=== PATIENT | female | born 1980 | race Caucasian/White ===

== ENCOUNTER 2017-10-02 15:38 | Inpatient (IN) | payer MEDICAID, SELFPAY ==
[2017-10-02 16:49] LABS: Hematocrit 39.7 % (36.0-47.0); Red Blood Cell (RBC) Count 4.52 mill/uL (4.20-5.40)
[2017-10-02 16:55] LABS: #Basophils 0.1 thou/uL (0.0-0.2); #Eosinphils 0.1 thou/uL (0.0-0.7); #Lymphocytes 2.3 thou/uL (1.20-3.40); #Monocytes 0.8 thou/uL (0.11-0.59); #Neutrophils 9.7 thou/uL (1.40-6.50); %Basophils 0.4 % (0.0-1.0); %Eosinophils 1.1 % (0.0-10.0); %Lymphocytes 17.5 % (21.0-51.0); %Monocytes 6.4 % (0.0-10.0); Mean Platelet Volume 7.8 fL (7.4-10.4)
[2017-10-02 17:12] LABS: ALT (SGPT) 15 U/L (8-55); AST (SGOT) 11 U/L (5-34); Alkaline Phosphatase 67 U/L (40-150); Anion Gap 9 mmol/L (10-20); BUN (Urea Nitrogen) 8 mg/dL (7.0-18.7); Bilirubin, Total 0.4 mg/dL (0.2-1.2); Calc. Creatinine Clearance 0 mL/min (70-130); Calcium 9.3 mg/dL (7.8-10.44); Carbon Dioxide 25 mmol/L (22-29); Chloride 108 mmol/L (98-107); Estimated GFR-MDRD 84; Globulin 3.3 g/dL (2.4-3.5); Protein, Total 7.4 g/dL (6.0-8.3)
[2017-10-02] MEDS ORDERED: Metoclopramide HCl 10 MG/2 ML VIAL ONE (17:24)
[2017-10-02] MEDS ORDERED: diphenhydrAMINE 50 MG/ML VIAL ONE (17:24)
[2017-10-02] MEDS ORDERED: Acetaminophen 500 MG TAB ONE (17:24)
[2017-10-02 17:58] LABS: Prothrombin Time 14.1 SEC (12.0-14.7)
--- NOTE | 2017-10-02 18:06 | RAD ---
SHUNTOGRAM SERIES: History: Headache. Comparison: None. FINDINGS: Shunt catheter is intact. No kinking. The paraspinal soft tissues are unremarkable. Lungs are without airspace consolidation. No dilated loops of small or large bowel. There are right upper quadrant surgical clips. IMPRESSION: Intact shunt catheter. POS: [facility]
[2017-10-02] MEDS ORDERED: Pantoprazole 40 MG VIAL ONE (18:09)
--- NOTE | 2017-10-02 18:26 | CT ---
CT BRAIN WITHOUT CONTRAST: History: Headache. FINDINGS: Right transfrontal shunt catheter is intact. No hydrocephalus. No acute hemorrhage or infarct. Mild g liosis along the right frontal tract. The paranasal sinuses and mastoid are clear. IMPRESSION: Intact right transfrontal shunt catheter. No hydrocephalus or acute intracranial abnormality. POS: [facility]
[2017-10-02] MEDS ORDERED: Ketorolac Tromethamine 30 MG/ML VIAL ONE (18:40)
[2017-10-02] MEDS ORDERED: Dexamethasone 4 mg/ml Vial ONE (18:40)
[2017-10-02] MEDS ORDERED: Pantoprazole 80 MG, Admixture Fee 1 EACH in Sodium Chloride 0.9% 100 ML IVPB SCH (18:45)
[2017-10-02] MEDS ORDERED: Magnesium 2 GM/NS 0.9% 50 ML 2 GM in Premix Bag 1 BAG IVPB SCH (19:00)
[2017-10-02] MEDS ORDERED: Magnesium 2 GM/NS 0.9% 100 ML 2 GM in Premix Bag 1 BAG IVPB SCH (19:00)
[2017-10-02 19:48] LABS: Bilirubin Negative (Negative); Blood, Urine Large (Negative); Glucose, Urine (Dipstick) Negative (Negative); Ketone, Urine Negative (Negative); Nitrite Negative (Negative); Protein, Urine (Dipstick) Trace mg/dL (Neg-Trace); Urobilinogen 0.2 mg/dL (0.2-1.0)
[2017-10-02 19:54] LABS: Bacteria/HPF 1+ HPF (None Seen); RBC/HPF 0-3 HPF (0-3)
[2017-10-02 20:05] LABS: Hyaline Casts/LPF 0-3 HYALINE CAST LPF (0-3 Hyaline)
[2017-10-02 20:06] LABS: Yeast-All Forms None Seen HPF (None Seen)
[2017-10-02] MEDS ORDERED: HYDROcodone/Acetaminophen 5/325 mg Tablet PO PRN (21:02)
[2017-10-02 21:13] VITALS: BMI 34.4
[2017-10-02] MEDS: Sodium Chloride 0.9% 1,000 ML IV SCH (21:45)
[2017-10-02] MEDS ORDERED: Amitriptyline HCl 25 MG TAB PO SCH (22:30)
[2017-10-02] MEDS: Ondansetron HCl/PF 4 MG/2 ML Vial IVP PRN (22:58)
[2017-10-03] MEDS ORDERED: Lorazepam 1 MG TAB PO SCH (00:45)
--- NOTE | 2017-10-03 02:17 | HP ---
DATE OF ADMISSION: 10/02/2017 PRIMARY CARE PROVIDER: Franck mcgovern. CHIEF COMPLAINT: Headache, abdominal pain, and blood in the stool. HISTORY OF PRESENT ILLNESS: This is a 37-year-old female, who presents to [facility] in transfer from [facility] where patient is a current resident after apparently maninder wall out of nursing home after a 15-month sentence. The patient states she has increasing headache, throbbing in the back portion of her head, radiating down her neck into her back. The patient states the symp toms have been ongoing with a history of questionable migraine headaches. Review of patient's medica l record shows multiple ER visits over the last several months. Regarding headache evaluation, recei ving IV Toradol, Fioricet, Benadryl, and Decadron. The patient also states a history of GUARD CAPTAIN shunt kayode cement after apparent spinal meningitis in 2012 or 2013. The patient states she had revision of the shunt, moving it to the right abdominal area after more midline location. The patient states she had sweating, subjective fever, some confusion and gait instability. The patient also states increasing abdominal pain with multiple bowel movements that appeared bloody in nature. The patient became con cerned when the entire toilet bowl was full of blood after a bowel movement. The patient denied any specific change to medication regimen, exposure history or travel. The patient denied any recent exp osure to antibiotic therapy. Review of medical records does reveal multiple ER visits, receiving IV and oral pain medications related to her headaches. The patient denies any known history of stomach ulcerations, colon polyps, ischemic bowel or irritable bowel syndrome. The patient also admitted wili e associated symptoms of the headache with tingling in her extremities and numbness of the hands. Th e patient states she did not take any specific relieving medication. The patient does state that she was recently placed on amitriptyline over the last 2-3 weeks by a clinic in the [facility]. T he patient denies any chronic aspirin, ibuprofen or anticoagulation therapy. In the emergency room, the patient underwent general evaluation including CT of the brain showing intact right transfrontal shunt catheter in place. No evidence of hydrocephalus or dislodgement noted. The patient received m ultiple medications including Protonix, Decadron, Toradol, Reglan, and Benadryl in the emergency room . The patient also received intravenous normal saline and Tylenol orally. The patient still continu es to complain of some headache at the time of interview. PAST MEDICAL HISTORY: 1. History of questionable spinal meningitis, status post GUARD CAPTAIN shunt placement. 2. Question of migraine headaches. 3. Question of drug seeking behavior. PAST SURGICAL HISTORY: 1. Status post GUARD CAPTAIN shunt with revision. 2. Status post cholecystectomy. 3. Status post bilateral tubal ligation. PSYCHIATRIC HISTORY: Anxiety. CURRENT MEDICATIONS: Unavailable. We will need to confirm with the patient and family. ALLERGIES: No known drug allergies. FAMILY HISTORY: No inheritable diseases per patient report. SOCIAL HISTORY: Recently incarcerated, released from nursing home after 15 months. Currently residing at [facility]. No current alcohol, tobacco or illicit drug use. REVIEW OF SYSTEMS: The following complete review of systems was negative, unless otherwise mentioned in the HPI or below: Constitutional: Weight loss or gain, ability to conduct usual activities. Skin: Rash, itching. Eyes: Double vision, pain. ENT/Mouth: Nose bleeding, neck stiffness, pain, tenderness. Cardiovascular: Palpitations, dyspnea on exertion, orthopnea. Respiratory: Shortness of breath, wheezing, cough, hemoptysis, fever or night sweats. Gastrointestinal: Poor appetite, abdominal pain, heartburn, nausea, vomiting, constipation, or diarr hea. Genitourinary: Urgency, frequency, dysuria, nocturia. Musculoskeletal: Pain, swelling. Neurologic/Psychiatric: Anxiety, depression. Allergy/Immunologic: Skin rash, bleeding tendency. PHYSICAL EXAMINATION: VITAL SIGNS: On admission, blood pressure 130/90, pulse 114, respiratory rate 20, temperature 98.1 d egrees Fahrenheit, O2 saturation 97% on room air. GENERAL APPEARANCE: This is a 37-year-old female, alert and oriented x3, pleasant, in mild distress. HEENT: Pupils are equal, round, and reactive to light and accommodation. Extraocular muscles are in tact. No scleral icterus, no conjunctival injection. Nares patent. OP is clear. Teeth in fair rep air. NECK: Supple. No cervical adenopathy, no thyromegaly, no carotid bruits, no JVD appreciated. Cervi dolly spine with full active and passive range of motion. No meningeal signs appreciated. CHEST: Lungs are clear to auscultation bilaterally. CARDIOVASCULAR: S1, S2, without noted murmur. ABDOMEN: Obese, soft, nontender, nondistended. Bowel sounds are positive in all four quadrants. Th ere is no hepatosplenomegaly, no abdominal bruits, no rebound or guarding appreciated. EXTREMITIES: Warm and dry with fair turgor. No clubbing, cyanosis or asymmetric edema appreciated. Pulses are palpable distally at the dorsalis pedis, posterior tibial, and popliteal arteries bilater ally. Capillary refill less than 2 seconds. NEUROLOGIC: Cranial nerves II-XII are grossly intact. No focal or lateralizing signs appreciated. PERTINENT LABORATORY AND X-RAY FINDINGS: Sodium 139, potassium 3.4, chloride 108, CO2 of 25, BUN 8, creatinine 0.78, glucose 97, calcium 9.3. LFTs within normal limits. Serum ammonia level 67, albumi n 4.1. Serum beta hCG negative. CBC showed a white blood cell count of 13.0, hemoglobin 13, hematoc rit 40, platelet count 307 with 75% neutrophils. PT 14.1, INR 1.1. Stool Hemoccult positive x1 on 12/02/2016. CT of the brain without contrast showed no acute intracranial process, well positioned GUARD CAPTAIN shunt in place. Shuntogram dated on 10/02/2017 showed intact shunt catheter right upper quadrant wi th surgical clips in place. ASSESSMENT AND PLAN: 1. Intractable headache. Etiology unclear. Questionable migraine component versus tension. GUARD CAPTAIN blanca nt intact after review the shuntogram. We will consult Neurosurgery for general evaluation and asses sment during the hospital course. We will continue symptomatic and supportive measures. Hydrocodone at 5/325 mg 1-2 tabs p.o. q.4-6 hours p.r.n. pain. Tylenol 1000 mg p.o. q.6 hours p.r.n. We will c ontinue intravenous normal saline at 100 mL per hour. 2. Question of gastrointestinal bleed. We will continue serial CBC assessment. Continue Protonix i nfusion at 8 mg per hour. Consult GI Service for further evaluation. Avoid anticoagulation and NSAI Ds. 3. Hypokalemia. Mild. Continue potassium chloride supplementation and repeat potassium level in th e a.m. 4. Leukocytosis. No focal evidence of infectious process. Repeat CBC in the a.m. Hold antibiotic therapy. 5. Abdominal pain, nonspecific. Continue supportive measures. Continue intravenous fluids as outli yelitza previously. Continue Protonix. 6. Prophylaxis. Sequential compression devices while in bed. Protonix infusion at 8 mg per hour. 7. Code status is FULL. Surrogate medical decision maker not identified.
[2017-10-03 04:42] LABS: Band 4 % (5-11); Hematocrit 36.3 % (36.0-47.0); Neutrophil 84 % (42-75); Red Blood Cell (RBC) Count 4.08 mill/uL (4.20-5.40); White Blood Cell (WBC) Count 10.9 thou/uL (4.8-10.8)
[2017-10-03] MEDS ORDERED: Lidocaine 2% Viscous Solution 20 ML, Aluminum & Magnesium Hydroxide 30 ML, Donnatal Eli... SSW SCH ×3 (04:45)
[2017-10-03 04:48] LABS: ALT (SGPT) 13 U/L (8-55); AST (SGOT) 9 U/L (5-34); Alkaline Phosphatase 57 U/L (40-150); Anion Gap 7 mmol/L (10-20); BUN (Urea Nitrogen) 8 mg/dL (7.0-18.7); Bilirubin, Total 0.3 mg/dL (0.2-1.2); Calc. Creatinine Clearance 153 mL/min (70-130); Calcium 8.3 mg/dL (7.8-10.44); Carbon Dioxide 23 mmol/L (22-29); Chloride 112 mmol/L (98-107); Estimated GFR-MDRD Greater than 90; Globulin 2.8 g/dL (2.4-3.5); Magnesium 2.5 mg/dL (1.6-2.6); Protein, Total 6.3 g/dL (6.0-8.3)
--- NOTE | 2017-10-03 05:45 | CON ---
DATE OF CONSULTATION: 10/02/2017 HISTORY OF PRESENT ILLNESS: Ms. Keys is a 37-year-old female who presented tonight with abdomin al pain and bloody stools. She also had a right-sided headache over which she had a previous shunt p l[place] [address] Stephens in [place], [place]. Neurosurgery was consulted because she has diff use right-sided headache on the side of her shunt. The skin around her shunt looks normal. Her whit e blood cell count was 13 and she is afebrile. CT of the brain and ventricles look small; however, i t looks like the shunt is working and the shunt series were negative. On exam, there are no neurolog ic deficits. The shunt placed in 2012, was placed because of hydrocephalus that she had a previous h istory of viral meningitis previous to the shunt in 2012. The shunt is a Codman Hakim shunt, antibio tic eluting and programmed to 120 mmHg. She has no prior imaging of the brain at hospitals around [facility]; however, all of her imaging and her neurosurgeon, Dr. Stephens is in [facility]. She is currently in [place] because she got out of [facility] and is in a senior living house. She also has besides the headache, the pain that radiates down her neck. ALLERGIES: No known drug allergies. CURRENT MEDICATIONS: 1. Imitrex 6 mg/0.5 mL 2. Ibuprofen 800 mg oral as needed for migraine. 3. Amitriptyline 50 mg oral 1 tablet 2 times a day. 4. Xanax 1 mg oral 1 tablet 2 times a day. PAST MEDICAL HISTORY: NIGHTCLUB MANAGER shunt and spinal meningitis. PAST SURGICAL HISTORY: Includes NIGHTCLUB MANAGER shunt, cholecystectomy, laparoscopic tubal ligation. PSYCHIATRIC HISTORY: Includes anxiety. No previous psychiatric admissions. SOCIAL HISTORY: The patient denies alcohol use, denies drug use, and has no smoking history. REVIEW OF SYSTEMS: The patient reports subjective fever. Currently, she is afebrile. The patient r eports abdominal pain, reports diarrhea with hematochezia. Reports back pain, right-sided headache, and neck pain. Reports confusion, dizziness. Although, the review of systems are negative, unless s tated in the above HPI. IMAGING/RADIOLOGY: CT brain without contrast shows the right transfrontal centric catheter intact. No hydrocephalus and no acute hemorrhage or infarct. X-ray shuntogram reveals the shunt catheter is intact. There is no kinking. The paraspinal soft tissues are unremarkable. Lungs are without airsp nathan consolidation. No dilated loops of small or large bowel. PHYSICAL EXAMINATION: HEENT: Normocephalic, atraumatic. Hearing intact. Moist mucous membranes. Eyes, pupils are equal and reactive to light. Extraocular muscles are intact. Sclerae are white, nonicteric. NECK: Trachea is midline. A shunt is under the skin on the right frontal region. CARDIOVASCULAR: The patient has regular rate and rhythm. Normal S1, S2 heart sounds. No distal cya nosis or clubbing noted. RESPIRATORY: Patient has bilateral symmetric chest rise. Appears to be in no shortness of breath. NEUROLOGIC: Cranial nerves II through XII are grossly intact. Speech is fluent. She answers my que stions appropriately. She is GCS of 15. She is alert and oriented x4. IMPRESSION: Ms. Keys is a 37-year-old female who presents with a past history of surgical place ment of a right-sided NIGHTCLUB MANAGER shunt in 2012 and has acute blood and hematochezia with diarrhea. PLAN: Medicine will admit Ms. Keys and workup for GI bleed. Neurologically, her neuro exam is negative and there are no acute findings. Therefore, there is no indication for neurosurgical proced ure at this time. Neurosurgery will sign off the case. If there are any further questions or if new neurologic deficits present, please feel free to contact us.
[2017-10-03] MEDS: Acetaminophen 500 MG TAB PO PRN ×2 (06:20→17:19)
--- NOTE | 2017-10-03 08:03 | CT ---
PRELIMINARY REPORT/[facility]/EMERGENCY AFTER HOURS PROCEDURE: EXAM: CT Abdomen and Pelvis Without Intravenous Contrast EXAM DATE/TIME: Exam ordered 10/03/2017 1:01 AM CLINICAL HISTORY: 37 years old, female; Pain and signs and symptoms; Bloating; Abdominal pain; Generalized; Prior surge ry; Patient HX: Eval for possible perforation; Pt C/O bloody stools. Abdominal pain (generalized), ab dominal distention. Surgical HX of cholecystectomy, shunt, shunt repair, tubal ligation. TECHNIQUE: Axial computed tomography images of the abdomen and pelvis without intravenous contrast. Coronal reformatted images were created and reviewed. COMPARISON: No relevant prior studies available. FINDINGS: Lower thorax: No acute findings. ABDOMEN: Liver: Unremarkable. Gallbladder and bile ducts: Prior cholecystectomy. No ductal dilation. Pancreas: Unremarkable. No ductal dilation. Spleen: Unremarkable. No splenomegaly. Adrenals: Unremarkable. No mass. Kidneys and ureters: Unremarkable. No obstructing stones. No hydronephrosis. Stomach and bowel: Unremarkable. No obstruction. No mucosal thickening. Appendix: Normal appendix. PELVIS: Bladder: Unremarkable. No stones. Reproductive: Unremarkable as visualized. ABDOMEN and PELVIS: Intraperitoneal space: Unremarkable. No free air. No significant fluid collection. PROMOTIONS ASSOCIATE shunt catheter present. Bones/joints: No acute fracture. No dislocation. Soft tissues: Unremarkable. Vasculature: Unremarkable. No abdominal aortic aneurysm. Lymph nodes: Unremarkable. No enlarged lymph nodes. IMPRESSION: No acute findings. Thank you for allowing us to participate in the care of your patient. Dictated and Authenticated by: Jay Perez MD 10/03/2017 1:14 AM Central Time ([place] & [place]) FINAL REPORT EMERGENCY AFTER HOURS CT ABDOMEN AND PELVIS WITHOUT IV CONTRAST: Date: 10/03/17 HISTORY: Generalized abdominal pain. Blood stools. Abdominal distention. Surgical history of cholecystectomy a nd ventriculoperitoneal shunt. COMPARISON: None available. IMPRESSION: 1. Bibasilar atelectasis. 2. Ventriculoperitoneal shunt catheter noted in place entering via the right upper quadrant with tip of the catheter overlying the upper pelvis. 3. Post cholecystectomy changes. 4. No acute findings are seen in the abdomen or pelvis. 5. No CT evidence of appendicitis. 6. No free fluid or free intraperitoneal gas is seen in the abdomen or pelvis. Findings are in agreement with the preliminary report by Jace. POS: [facility]
[2017-10-03] MEDS: Sodium Chloride 0.9% 1,000 ML IV SCH ×2 (08:28→17:17)
[2017-10-03] MEDS: Amitriptyline HCl 25 MG TAB PO SCH ×2 (08:28→20:30)
[2017-10-03] MEDS: Lorazepam 1 MG TAB PO SCH ×3 (08:28→20:30)
[2017-10-03] MEDS: Ondansetron ODT 4 MG TAB PO PRN (08:32)
--- NOTE | 2017-10-03 11:45 | PDOC.PN ---
- Subjective Encounter Start Date: 10/03/17 Encounter Start Time: 07:00 Pt seen for followup re: rectal bleeding. Did not have a BM today. Reports pain over lower back. No nausea or vomiting. - Objective Resuscitation Status: Resuscitation Status FULL:Full Resuscitation MAR Reviewed: Yes Vital Signs & Weight: Vital Signs (12 hours) Temp Pulse Resp BP Pulse Ox 10/03/17 11:16 98.1 F 99 16 102/54 L 95 10/03/17 07:54 98.2 F 91 16 10/03/17 07:52 97.5 F L 93 16 104/56 L 96 10/03/17 05:39 98.2 F 91 16 95/52 L 95 10/02/17 23:53 98.0 F 94 18 112/61 94 L 10/02/17 23:45 97.7 F 91 16 Weight Weight 188 lb 1.6 oz I&O: 10/02/17 10/03/17 10/04/17 06:59 06:59 06:59 Intake Total 1758 500 Output Total 1900 400 Balance -142 100 Result Diagrams: 10/03/17 04:12 10/03/17 04:12 EKG Reviewed by me: Yes (Tele: NSR) Phys Exam - Physical Examination Constitutional: NAD HEENT: PERRLA, moist MMs, sclera anicteric, oral pharynx no lesions Neck: no nodes, no JVD, supple, full ROM Respiratory: no wheezing, no rales, no rhonchi, clear to auscultation bilateral Cardiovascular: RRR, no rub Gastrointestinal: soft, non-tender, no distention, positive bowel sounds Musculoskeletal: pulses present Neurological: moves all 4 limbs Lymphatic: no nodes Psychiatric: normal affect, A&O x 3 Skin: no rash, normal turgor, cap refill <2 seconds Dx/Plan (1) LGI bleed Code(s): K92.2 - GASTROINTESTINAL HEMORRHAGE, UNSPECIFIED Status: Acute (2) Migraine Code(s): G43.909 - MIGRAINE, UNSP, NOT INTRACTABLE, WITHOUT STATUS MIGRAINOSUS Status: Chronic (3) Meningitis Code(s): G03.9 - MENINGITIS, UNSPECIFIED Status: Chronic (4) S/P MOLD CHECKER shunt Status: Chronic - Plan out of bed/ambulate, DVT proph w/SCDs * . Awaiting GI consult. Mild drop in Hb(? dilutional) Appreciate neurosurgery input. Review of Systems - Review of Systems Constitutional: negative: Fever, Chills, Sweats, Weakness, Malaise Respiratory: negative: Cough, Dry, Shortness of Breath, Hemoptysis, SOB with Excertion, Pleuritic Pain, Sputum, Wheezing Cardiovascular: negative: Chest Pain, Palpitations, Orthopnea, Paroxysmal Noc. Dyspnea, Edema, Light Headedness Gastrointestinal: Hematochezia. negative: Nausea, Vomiting, Abdominal Pain, Diarrhea, Constipation, Melena Musculoskeletal: Back Pain. negative: Neck Pain, Shoulder Pain, Arm Pain, Hand Pain, Leg Pain, Foot Pain - Medications/Allergies Allergies/Adverse Reactions: Allergies Allergy/AdvReac Type Severity Reaction Status Date / Time No Known Allergies Allergy Verified 10/02/17 21:08 Medications: Current Medications Acetaminophen (Tylenol) 1,000 mg PO Q6H PRN PRN Reason: Headache/Fever or Mild Pain Last Admin: 10/03/17 06:20 Dose: 1,000 mg Amitriptyline HCl (Elavil) 50 mg PO BID [facility] Last Admin: 10/03/17 08:28 Dose: 50 mg Sodium Chloride (Normal Saline 0.9%) 1,000 mls @ 100 mls/hr IV .Q10H [facility] Last Admin: 10/03/17 08:28 Dose: 1,000 mls Lorazepam (Ativan) 1 mg PO TID [facility] Last Admin: 10/03/17 08:28 Dose: 1 mg Ondansetron HCl (Zofran Odt) 8 mg PO Q6H PRN PRN Reason: Nausea/Vomiting Last Admin: 10/03/17 08:32 Dose: 8 mg Ondansetron HCl (Zofran) 8 mg IVP Q6H PRN PRN Reason: Nausea/Vomiting Last Admin: 10/02/17 22:58 Dose: 8 mg Sodium Chloride (Flush - Normal Saline) 10 ml IVF Q12HR [facility] Last Admin: 10/03/17 08:37 Dose: Not Given Sodium Chloride (Flush - Normal Saline) 10 ml IVF PRN PRN PRN Reason: Saline Flush Last Admin: 10/02/17 21:51 Dose: 10 ml Tramadol HCl (Ultram) 50 mg PO Q6H PRN PRN Reason: pain
[2017-10-03] MEDS: traMADol HCl 50 MG TAB PO PRN ×2 (12:44→21:02)
[2017-10-03] MEDS ORDERED: GoLYTELY 4,000 ml Bottle PO SCH (15:45)
--- NOTE | 2017-10-03 18:00 | CON ---
DATE OF CONSULTATION: 10/03/2017 HISTORY OF PRESENT ILLNESS: The patient is a 37-year-old female who presented with headach e. She had a little nausea, vomiting. She has had some mucus in her stool, no constipation, no diar king. She has not had bleeding in the past like this. She has had occasional streaking of blood on the toilet paper, which she attributes to hemorrhoids. This time she passed some clots. She also de scribes abdominal pain and distention. PAST MEDICAL HISTORY: Includes spinal meningitis with a GEOLOGICAL MANAGER shunt, migraine headaches, and history of drug abuse. PAST MEDICAL/SURGICAL HISTORY: Includes a cholecystectomy, GEOLOGICAL MANAGER shunt and tubal ligation. ALLERGIES: No known allergies. SOCIAL HISTORY: She does not smoke or drink. FAMILY HISTORY: Significant for father with polyps. REVIEW OF SYSTEMS: Ten systems were reviewed and were negative except for above. PHYSICAL EXAMINATION: GENERAL: Shows an overweight female, in no acute distress. HEENT: Unremarkable. NECK: Supple. CHEST: Clear. CARDIOVASCULAR: Regular rate and rhythm. ABDOMEN: Soft, nontender, without organomegaly or masses. Bowel sounds are present and normoactive. RECTAL: Deferred. EXTREMITIES: Normal. NEUROLOGIC: Nonfocal. LABORATORY: Abdominal and pelvic CT showed no acute findings except for GEOLOGICAL MANAGER shunt entering the right lower quadrant, previous cholecystectomy and bibasilar atelectasis. Admission urinalysis showed 7-10 WBCs, normal chemistry panel except for glucose of 144. CBC on admission showed hemoglobin 13 and t his dropped to 11.8. ASSESSMENT: 1. Lower gastrointestinal bleed. 2. History of spinal meningitis and GEOLOGICAL MANAGER shunt placement. 3. Abdominal pain -- appears to be drug seeking. RECOMMENDATIONS: Colonoscopy in a.m.
[2017-10-03] MEDS: Ondansetron HCl/PF 4 MG/2 ML Vial IVP PRN (21:02)
[2017-10-03] MEDS ORDERED: Morphine 2 mg/2ml in 0.9% NaCl PF SYRINGE SLOW IVP PRN (23:14)
[2017-10-04] MEDS: Promethazine HCl 25 MG in Sodium Chloride 0.9% 100 ML IVPB PRN ×3 (02:07→23:49)
[2017-10-04] MEDS: Morphine PF 1 MG/ML SYR IV PRN ×3 (03:05→14:06)
[2017-10-04] MEDS: Sodium Chloride 0.9% 1,000 ML IV SCH ×3 (03:16→21:40)
[2017-10-04] MEDS: Ondansetron ODT 4 MG TAB PO PRN (08:54)
[2017-10-04] MEDS: Amitriptyline HCl 25 MG TAB PO SCH ×2 (10:00→20:00)
[2017-10-04] MEDS: Lorazepam 1 MG TAB PO SCH ×3 (10:00→20:00)
--- NOTE | 2017-10-04 11:13 | PDOC.PN ---
- Subjective Encounter Start Date: 10/04/17 Encounter Start Time: 07:20 Pt seen for followup re: lower GI bleed. Reports having multiple BMs with blood. No nausea or vomiting. - Objective Resuscitation Status: Resuscitation Status FULL:Full Resuscitation MAR Reviewed: Yes Vital Signs & Weight: Vital Signs (12 hours) Temp Pulse Resp BP BP Pulse Ox 10/04/17 09:05 119/67 10/04/17 07:35 97.3 F L 89 16 94/51 L 95 10/04/17 05:44 97.6 F 76 16 99/61 95 Weight Admit Weight 188 lb 1.6 oz Weight 190 lb 6.4 oz I&O: 10/03/17 10/04/17 10/05/17 06:59 06:59 06:59 Intake Total 1758 7946 Output Total 1900 1700 Balance -142 6246 Result Diagrams: 10/03/17 04:12 10/03/17 04:12 EKG Reviewed by me: Yes (Tele: NSR) Phys Exam - Physical Examination Obese HEENT: moist MMs, oral pharynx no lesions Neck: supple Respiratory: clear to auscultation bilateral Cardiovascular: RRR Gastrointestinal: soft, non-tender, positive bowel sounds Neurological: moves all 4 limbs Psychiatric: normal affect Skin: no rash Dx/Plan (1) LGI bleed Code(s): K92.2 - GASTROINTESTINAL HEMORRHAGE, UNSPECIFIED Status: Acute (2) Migraine Code(s): G43.909 - MIGRAINE, UNSP, NOT INTRACTABLE, WITHOUT STATUS MIGRAINOSUS Status: Chronic (3) S/P HIDE MILL WORKER shunt Status: Chronic - Plan PT/OT, out of bed/ambulate, DVT proph w/SCDs * . Awaiting colonoscopy, will check CBC. Headache resolved. Review of Systems - Review of Systems Cardiovascular: negative: Chest Pain, Palpitations, Orthopnea, Paroxysmal Noc. Dyspnea, Edema, Light Headedness Gastrointestinal: Hematochezia. negative: Nausea, Vomiting, Abdominal Pain, Diarrhea, Constipation, Melena - Medications/Allergies Allergies/Adverse Reactions: Allergies Allergy/AdvReac Type Severity Reaction Status Date / Time No Known Allergies Allergy Verified 10/02/17 21:08 Medications: Current Medications Acetaminophen (Tylenol) 1,000 mg PO Q6H PRN PRN Reason: Headache/Fever or Mild Pain Last Admin: 10/03/17 17:19 Dose: 1,000 mg Amitriptyline HCl (Elavil) 50 mg PO BID [facility] Last Admin: 10/04/17 10:00 Dose: 50 mg Sodium Chloride (Normal Saline 0.9%) 1,000 mls @ 100 mls/hr IV .Q10H [facility] Last Admin: 10/04/17 03:16 Dose: 1,000 mls Promethazine HCl 25 mg/ Sodium (Chloride) 101 mls @ 202 mls/hr IVPB Q8H PRN PRN Reason: Nausea Last Admin: 10/04/17 02:07 Dose: 101 mls Lorazepam (Ativan) 1 mg PO TID [facility] Last Admin: 10/04/17 10:00 Dose: 1 mg Morphine Sulfate (Duramorph) 2 mg IV Q6H PRN PRN Reason: Pain Last Admin: 10/04/17 08:58 Dose: 2 mg Ondansetron HCl (Zofran Odt) 8 mg PO Q6H PRN PRN Reason: Nausea/Vomiting Last Admin: 10/04/17 08:54 Dose: 8 mg Ondansetron HCl (Zofran) 8 mg IVP Q6H PRN PRN Reason: Nausea/Vomiting Last Admin: 10/03/17 21:02 Dose: 8 mg Sodium Chloride (Flush - Normal Saline) 10 ml IVF Q12HR [facility] Last Admin: 10/04/17 09:58 Dose: Not Given Sodium Chloride (Flush - Normal Saline) 10 ml IVF PRN PRN PRN Reason: Saline Flush Last Admin: 10/02/17 21:51 Dose: 10 ml Tramadol HCl (Ultram) 50 mg PO Q6H PRN PRN Reason: pain Last Admin: 10/03/17 21:02 Dose: 50 mg
[2017-10-04] MEDS ORDERED: Propofol 500 MG/50 ML VIAL ONE (11:34)
[2017-10-04] MEDS ORDERED: Fentanyl 100 MCG/2 ML VIAL ONE (12:18)
--- NOTE | 2017-10-04 12:50 | PDOC.EVN ---
Event Note - Event Note Event Note: Discussed with case management re: ongoing GI bleed, diagnosis of colitis and hypotension earlier today. Will change status to in-patient.
--- NOTE | 2017-10-04 14:17 | OP ---
PREOPERATIVE DIAGNOSIS: Gastrointestinal bleeding. PROCEDURE IN DETAIL: After informed consent was obtained, the patient was placed in the left lateral decubitus position. Anesthesia was administered per the Anesthesia Department. A forward-viewing e ndoscope was inserted in the rectum after perianal inspection and rectal exam were normal and passed to the cecum with ease. The cecum, ileocecal valve and appendiceal orifice were normal. The appendi ceal orifice did show some slight edema and some erosions with some granularity. The terminal ileum was normal. Biopsies were taken from the appendiceal orifice. The ascending, transverse and descend ing were all normal. In the sigmoid, few scattered areas of erosion were noted. These were biopsied . In the rectal and the distal 5 cm in the rectum was circumferential granularity and erythema. Bio psies were taken from this area as well. Retroflexion in the rectum was otherwise normal. ASSESSMENT: Colitis involving periappendiceal orifice, scattered areas of the sigmoid and distal rec mike - status post biopsy; probably ulcerative colitis. RECOMMENDATIONS: 1. Await histopathology. 2. Begin Canasa suppositories. 3. Stable for discharge from GI standpoint.
[2017-10-04 14:24] LABS: #Basophils 0.1 thou/uL (0.0-0.2); #Eosinphils 0.1 thou/uL (0.0-0.7); #Lymphocytes 3.3 thou/uL (1.20-3.40); #Monocytes 0.4 thou/uL (0.11-0.59); #Neutrophils 4.6 thou/uL (1.40-6.50); %Basophils 0.9 % (0.0-1.0); %Eosinophils 1.2 % (0.0-10.0); %Lymphocytes 39.1 % (21.0-51.0); Hematocrit 36.9 % (36.0-47.0); Mean Platelet Volume 8.1 fL (7.4-10.4); Red Blood Cell (RBC) Count 4.08 mill/uL (4.20-5.40); White Blood Cell (WBC) Count 8.5 thou/uL (4.8-10.8)
[2017-10-04] MEDS ORDERED: Propofol 200 MG/20 ML VIAL ONE (15:30)
[2017-10-04] MEDS ORDERED: Lidocaine 1% PF 5 ML VIAL ONE (15:30)
[2017-10-04] MEDS ORDERED: PHENYLEPHRINE-NS 100 MCG/ML 10 ML SYRINGE ONE (15:30)
[2017-10-04] MEDS: Mesalamine 1000 MG Suppository PR SCH (20:01)
[2017-10-04] MEDS: Morphine 2 mg/2ml in 0.9% NaCl PF SYRINGE IV PRN (20:02)
[2017-10-04] MEDS: Ondansetron HCl/PF 4 MG/2 ML Vial IVP PRN (20:02)
[2017-10-05] MEDS: Morphine 2 mg/2ml in 0.9% NaCl PF SYRINGE IV PRN ×2 (01:54→10:06)
[2017-10-05 04:41] LABS: Hematocrit 34.7 % (36.0-47.0); Mean Platelet Volume 7.9 fL (7.4-10.4); White Blood Cell (WBC) Count 10.5 thou/uL (4.8-10.8)
[2017-10-05] MEDS: Acetaminophen 500 MG TAB PO PRN ×2 (05:17→21:04)
[2017-10-05] MEDS: Lorazepam 1 MG TAB PO SCH ×3 (08:23→21:01)
[2017-10-05] MEDS: Sodium Chloride 0.9% 1,000 ML IV SCH ×2 (08:23→21:07)
[2017-10-05] MEDS: Amitriptyline HCl 25 MG TAB PO SCH ×2 (08:23→21:01)
--- NOTE | 2017-10-05 12:24 | PRG ---
DATE OF SERVICE: 10/05/2017 SUBJECTIVE: The patient complains of abdominal pain. She has not had any bowel movements. She has had nausea, but no vomiting. She is tolerating a regular diet. OBJECTIVE: VITAL SIGNS: Temperature 97.6, pulse 99, respiratory rate 18, blood pressure 110/73. CHEST: Clear. CARDIOVASCULAR: Regular rate and rhythm. ABDOMEN: Soft, nontender, without organomegaly or masses. LABORATORY DATA: Shows hemoglobin of 11.5, hematocrit 34.7. ASSESSMENT: Rectosigmoid ulcerative colitis - is fairly minimal disease and it can be managed as an outpatient. RECOMMENDATIONS: 1. Continue Canasa, add Azulfidine. 2. Stable for discharge from GI standpoint. 3. Follow up as outpatient.
[2017-10-05] MEDS: sulfaSALAzine 500 MG TAB PO SCH ×3 (13:28→21:01)
--- NOTE | 2017-10-05 13:54 | PDOC.PN ---
- Subjective Encounter Start Date: 10/05/17 Encounter Start Time: 11:45 Subjective: c/o abd pain -: no nausea or vomiting - Objective Resuscitation Status: Resuscitation Status FULL:Full Resuscitation MAR Reviewed: Yes Vital Signs & Weight: Vital Signs (12 hours) Temp Pulse Resp BP Pulse Ox 10/05/17 11:21 97.6 F 99 18 110/73 97 10/05/17 08:12 98.1 F 97 17 99/68 97 10/05/17 08:00 98.1 F 97 17 97 Weight Admit Weight 188 lb 1.6 oz Weight 190 lb 6.4 oz I&O: 10/04/17 10/05/17 10/06/17 06:59 06:59 06:59 Intake Total 7946 0 480 Output Total 1700 Balance 6246 0 480 Result Diagrams: 10/05/17 04:14 10/03/17 04:12 Phys Exam - Physical Examination HEENT: PERRLA, moist MMs Neck: no JVD, supple Respiratory: no wheezing, no rales Cardiovascular: RRR, no significant murmur Gastrointestinal: soft, no distention, positive bowel sounds no rigidity or guarding Musculoskeletal: no edema, pulses present Neurological: non-focal, moves all 4 limbs Psychiatric: A&O x 3 Dx/Plan (1) Ulcerative colitis Code(s): K51.90 - ULCERATIVE COLITIS, UNSPECIFIED, WITHOUT COMPLICATIONS Status: Acute Qualifiers: Ulcerative colitis location: ulcerative rectosigmoiditis (2) LGI bleed Code(s): K92.2 - GASTROINTESTINAL HEMORRHAGE, UNSPECIFIED Status: Resolved (3) Migraine Code(s): G43.909 - MIGRAINE, UNSP, NOT INTRACTABLE, WITHOUT STATUS MIGRAINOSUS Status: Chronic Qualifiers: Migraine type: unspecified (4) h/o manager biostatistics shunt Status: Chronic - Plan is on mesalamine suppository and oral sulfasalazine -: pt wants to go in am, may dc anytime if she is willing to go -: is currently living in [facility] -: h/h stable at -: may dc iv fluids if tolerating po well * . Review of Systems - Medications/Allergies Allergies/Adverse Reactions: Allergies Allergy/AdvReac Type Severity Reaction Status Date / Time No Known Allergies Allergy Verified 10/02/17 21:08 Medications: Current Medications Acetaminophen (Tylenol) 1,000 mg PO Q6H PRN PRN Reason: Headache/Fever or Mild Pain Last Admin: 10/05/17 05:17 Dose: 1,000 mg Amitriptyline HCl (Elavil) 50 mg PO BID [facility] Last Admin: 10/05/17 08:23 Dose: 50 mg Sodium Chloride (Normal Saline 0.9%) 1,000 mls @ 100 mls/hr IV .Q10H [facility] Last Admin: 10/05/17 08:23 Dose: 1,000 mls Promethazine HCl 25 mg/ Sodium (Chloride) 101 mls @ 202 mls/hr IVPB Q8H PRN PRN Reason: Nausea Last Admin: 10/04/17 23:49 Dose: 101 mls Lorazepam (Ativan) 1 mg PO TID [facility] Last Admin: 10/05/17 08:23 Dose: 1 mg Mesalamine (Canasa) 1,000 mg VA HS [facility] Last Admin: 10/04/17 20:01 Dose: 1,000 mg Ondansetron HCl (Zofran Odt) 8 mg PO Q6H PRN PRN Reason: Nausea/Vomiting Last Admin: 10/04/17 08:54 Dose: 8 mg Ondansetron HCl (Zofran) 8 mg IVP Q6H PRN PRN Reason: Nausea/Vomiting Last Admin: 10/04/17 20:02 Dose: 8 mg Sodium Chloride (Flush - Normal Saline) 10 ml IVF Q12HR [facility] Last Admin: 10/05/17 08:24 Dose: Not Given Sodium Chloride (Flush - Normal Saline) 10 ml IVF PRN PRN PRN Reason: Saline Flush Last Admin: 10/02/17 21:51 Dose: 10 ml Sulfasalazine (Azulfidine) 1,000 mg PO QID [facility] Last Admin: 10/05/17 13:28 Dose: 1,000 mg Tramadol HCl (Ultram) 50 mg PO Q6H PRN PRN Reason: pain Last Admin: 10/03/17 21:02 Dose: 50 mg
[2017-10-05] MEDS: Promethazine HCl 25 MG in Sodium Chloride 0.9% 100 ML IVPB PRN (17:12)
[2017-10-05] MEDS: traMADol HCl 50 MG TAB PO PRN ×2 (17:13→23:02)
[2017-10-05] MEDS: Hyoscyamine Sulfate SL 0.125 mg Tablet SL PRN (20:58)
[2017-10-05] MEDS: Mesalamine 1000 MG Suppository PR SCH (21:04)
[2017-10-06] MEDS: Acetaminophen 500 MG TAB PO PRN (03:25)
[2017-10-06] MEDS: Hyoscyamine Sulfate SL 0.125 mg Tablet SL PRN (03:25)
[2017-10-06] MEDS: Sodium Chloride 0.9% 1,000 ML IV SCH (05:15)
[2017-10-06] MEDS: traMADol HCl 50 MG TAB PO PRN ×2 (05:22→11:44)
[2017-10-06 08:02] VITALS: BP 112/75; TEMP 97.7
[2017-10-06] MEDS: Amitriptyline HCl 25 MG TAB PO SCH (08:18)
[2017-10-06] MEDS: Lorazepam 1 MG TAB PO SCH (08:18)
[2017-10-06] MEDS: sulfaSALAzine 500 MG TAB PO SCH (08:18)
--- NOTE | 2017-10-06 12:31 | PDOC.PN ---
- Subjective Encounter Start Date: 10/06/17 Encounter Start Time: 07:50 Subjective: feels better, is tolerating oral diet - Objective Resuscitation Status: Resuscitation Status FULL:Full Resuscitation MAR Reviewed: Yes Vital Signs & Weight: Vital Signs (12 hours) Temp Pulse Resp BP Pulse Ox 10/06/17 08:00 97.7 F 72 16 112/75 96 Weight Admit Weight 188 lb 1.6 oz Weight 190 lb 6.4 oz I&O: 10/05/17 10/06/17 10/07/17 06:59 06:59 06:59 Intake Total 2049 5261 180 Balance 2049 5261 180 Result Diagrams: 10/05/17 04:14 10/03/17 04:12 Phys Exam - Physical Examination HEENT: PERRLA, moist MMs Neck: no JVD, supple Respiratory: no wheezing, no rales Cardiovascular: RRR, no significant murmur Gastrointestinal: soft, non-tender, positive bowel sounds Musculoskeletal: no edema, pulses present Neurological: non-focal, moves all 4 limbs Psychiatric: A&O x 3 Dx/Plan (1) Ulcerative colitis Code(s): K51.90 - ULCERATIVE COLITIS, UNSPECIFIED, WITHOUT COMPLICATIONS Status: Acute Qualifiers: Ulcerative colitis location: ulcerative rectosigmoiditis (2) LGI bleed Code(s): K92.2 - GASTROINTESTINAL HEMORRHAGE, UNSPECIFIED Status: Resolved (3) Migraine Code(s): G43.909 - MIGRAINE, UNSP, NOT INTRACTABLE, WITHOUT STATUS MIGRAINOSUS Status: Chronic Qualifiers: Migraine type: unspecified (4) h/o 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
--- NOTE | 2017-10-07 11:31 | DIS ---
DATE OF ADMISSION: 10/02/2017 DATE OF DISCHARGE: 10/06/2017 DISCHARGE DISPOSITION: To home. PRIMARY DISCHARGE DIAGNOSES: Suspected ulcerative colitis of the rectosigmoid area, lower gastrointe stinal bleed, resolved, migraine, history of HERITAGE CONSULTANT shunt. PROCEDURES DONE DURING HOSPITALIZATION: Abdominal and pelvic CAT scan done showed no acute findings. Her HERITAGE CONSULTANT shunt catheter is noted in place entering via the right upper quadrant with tip of the miguelito ter overlying the upper pelvis. No CT evidence of appendicitis or free fluid or gas seen. Shuntogra m done for her HERITAGE CONSULTANT shunt showed intact shunt catheter. CT brain showed intact right transfrontal shun t catheter. No hydrocephalus or acute intracranial abnormality. Colonoscopy done showed colitis inv olving periappendiceal orifice, scattered areas of sigmoid and distal rectum, status post biopsy, pro bably ulcerative colitis. DISCHARGE MEDICATIONS: Amitriptyline 50 mg p.o. twice daily, lorazepam 1 mg p.o. 3 times daily, shen alaina 1000 mg per rectal at bedtime, sulfasalazine 1000 mg p.o. 4 times daily, sumatriptan p.r.n. ALLERGIES: No known drug allergies. DISCHARGE LABORATORY DATA: H&H was 11 and 34, platelet count 255. INR 1.1. Liver enzymes were with in normal limits. Serum test was negative. INPATIENT CONSULTS: Dr. Chapa for Gastroenterology. BRIEF COURSE DURING HOSPITALIZATION: The patient initially got admitted on the with complaints of headache, abdominal pain, and blood in her stool. She was initially admitted to the stroke unit, later transferred to medical floor. She has had a CT brain done in view of her HERITAGE CONSULTANT shunt and a shunto gram was done as well. CT brain did not reveal any acute abnormalities. Her HERITAGE CONSULTANT shunt was patent. T he patient has had a GI consultation with Dr. Chapa. Colonoscopy done revealed scattered areas of col itis with likely suspicion for ulcerative colitis. She was placed on mesalamine and sulfasalazine. She has responded well to these measures. She is ambulating and tolerating solid diet. The patient needs to follow up with Dr. Chapa in 2-4 weeks. Need to discuss her histopathology findings as well w uri Chapa. She is otherwise hemodynamically stable and will be shortly discharged home. Please s ee a [id number] documentation for the day of discharge on [facility].
== END 2017-10-06 12:22 | disposition home or self-care (01) | DRG 378 ==
LOC: ERS 15:38 → 2SW 20:46 → OBSVTOIN 20:46 → T4-B 10-04 15:49
PROVIDERS: ADMIT Family Medicine; ATTEND Family Medicine
PROC: 0DBH8ZX Excision of Cecum, Via Natural or Artificial Opening Endoscopic, Diagnostic (ICD-10-PCS; principal; 2017-10-05)
PROC: 0DBN8ZX Excision of Sigmoid Colon, Via Natural or Artificial Opening Endoscopic, Diagnostic (ICD-10-PCS; 2017-10-05)
PROC: 0DBP8ZX Excision of Rectum, Via Natural or Artificial Opening Endoscopic, Diagnostic (ICD-10-PCS; 2017-10-05)
DX: K92.2 Gastrointestinal hemorrhage, unspecified (principal); J98.11 Atelectasis; K51.90 Ulcerative colitis, unspecified, without complications; E87.6 Hypokalemia; D72.829 Elevated white blood cell count, unspecified; F41.9 Anxiety disorder, unspecified; G43.909 Migraine, unspecified, not intractable, without status migrainosus; Z76.5 Malingerer [conscious simulation]
CPT/HCPCS: 36415; 70450; 74176; 75809; 80053; 81003; 81015; 82140; 82274; 83735; 83880; 84703; 85007; 85025; 85027; 85610; 86850; 86900; 86901; 88305; 96361; 96365; 96375; 96376; A4216; C9113; J1100; J1200; J1885; J2001; J2270; J2274; J2405; J2550; J2704; J2765; J3010; J3475; J7050; Q0162

== ENCOUNTER 2017-10-08 13:50 | Emergency (ER) | payer MEDICAID ==
[2017-10-08 14:43] LABS: Bilirubin Negative (Negative); Blood, Urine Negative (Negative); Glucose, Urine (Dipstick) Negative (Negative); Ketone, Urine 40 mg/dL (Negative); Nitrite Negative (Negative); Protein, Urine (Dipstick) Negative (Neg-Trace); Urobilinogen 0.2 mg/dL (0.2-1.0)
[2017-10-08 15:19] LABS: #Basophils 0.1 thou/uL (0.0-0.2); #Eosinphils 0.1 thou/uL (0.0-0.7); #Monocytes 0.6 thou/uL (0.11-0.59); #Neutrophils 6.4 thou/uL (1.40-6.50); %Basophils 0.7 % (0.0-1.0); %Eosinophils 0.7 % (0.0-10.0); %Lymphocytes 21.7 % (21.0-51.0); %Monocytes 6.2 % (0.0-10.0); Hematocrit 42.2 % (36.0-47.0); Mean Platelet Volume 7.8 fL (7.4-10.4); Red Blood Cell (RBC) Count 4.76 mill/uL (4.20-5.40)
[2017-10-08] MEDS ORDERED: Metoclopramide HCl 10 MG/2 ML VIAL ONE (15:35)
[2017-10-08 15:41] LABS: ALT (SGPT) 18 U/L (8-55); AST (SGOT) 14 U/L (5-34); Alkaline Phosphatase 64 U/L (40-150); Anion Gap 14 mmol/L (10-20); BUN (Urea Nitrogen) 10 mg/dL (7.0-18.7); Bilirubin, Total 0.6 mg/dL (0.2-1.2); Calc. Creatinine Clearance 0 mL/min (70-130); Calcium 9.8 mg/dL (7.8-10.44); Carbon Dioxide 26 mmol/L (22-29); Chloride 102 mmol/L (98-107); Estimated GFR-MDRD 77; Globulin 3.6 g/dL (2.4-3.5); Protein, Total 7.9 g/dL (6.0-8.3)
[2017-10-08 15:49] LABS: Amphetamine Not Detected (NotDetected); Methadone Not Detected (NotDetected); Methamphetamine Not Detected (NotDetected)
--- NOTE | 2017-10-08 16:48 | CT ---
CT BRAIN NONCONTRAST: DATE: 10/08/17 HISTORY: 37-year-old female with right sided headache. COMPARISON: CT of 10/02/17. FINDINGS: MOLDING SUPERVISOR shunt catheter enters through a right frontal terrance hole, traversing the right frontal lobe parench yma and with distal tip at midline, in the region of the foramen of Monro. The lateral ventricles are small and slit-like except for the temporal horns. Third ventricle is effaced. Fourth ventricle is s mall. No acute intra-axial or extra-axial hemorrhage. No mass effect, midline shift, or extra-axial f luid collection. Bilateral tympanomastoid cavities, and the frontal, ethmoid and sphenoid sinuses, ar e grossly clear. No acute calvarial fracture. No interval change overall. IMPRESSION: 1. No acute intracranial findings. 2. Collapsed ventricles, raising the possibility of over-shunting. Recommend clinical correlatio n. 3. No interval change since 10/02/17. AKASH Keith POS: [facility]
--- NOTE | 2017-10-08 16:50 | RAD ---
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 FINDINGS/IMPRESSION: A right sided ventriculoperitoneal shunt is seen which extends to the right side of the head into the right side of the neck and chest. The visualized portions of the right sided ventriculoperitoneal sh unt are intact. Prevertebral soft tissues are normal. The airway appears patent. Alignment of the cer vical vertebral bodies is normal. POS: [facility]
--- NOTE | 2017-10-08 16:52 | RAD ---
RADIOGRAPH CHEST 1 VIEW RADIOGRAPH ABDOMEN 2 VIEWS: 10/08/17 HISTORY: Generalized abdominal pain. FINDINGS: The visualized lung parikh are clear. The cardiomediastinal silhouette and hilar shadows are normal. The lateral costophrenic angles are sharp. The osseous structures appear normal. There is no evid ence of pneumothorax or pneumoperitoneum. The bowel gas pattern is normal, with no evidence of small bowel dilation or differential air/fluid l evels. There is no evidence of organomegaly. CAFE HELPER shunt catheter descends the soft tissues of the right lower neck and right paramedian chest, down to the right paramedian mid abdomen, where it loops and crosses the midline to the left, before desce nding to the right side of the pelvis, with distal tip to the left in the pelvis. There are cholecyst ectomy clips in the right upper quadrant. There is no evidence of disruption of the CAFE HELPER shunt catheter . IMPRESSION: 1. Ventriculoperitoneal shunt catheter without evidence of discontinuity. 2. Status post cholecystectomy. 3. Otherwise negative. be mei POS: [facility]
[2017-10-08] MEDS ORDERED: Ketorolac Tromethamine 30 MG/ML VIAL ONE (17:24)
[2017-10-08] MEDS ORDERED: diphenhydrAMINE 50 MG/ML VIAL ONE (17:24)
== END 2017-10-08 18:05 | disposition home or self-care (01) ==
LOC: ERS 13:50
DX: R51 Headache (principal); R10.11 Right upper quadrant pain; F41.9 Anxiety disorder, unspecified; Z79.899 Other long term (current) drug therapy
CPT/HCPCS: 36415; 70360; 70450; 74022; 80053; 80306; 81003; 81025; 84703; 85025; 87086; 96361; 96374; 96375; J1200; J1885; J2765

== ENCOUNTER 2017-10-10 13:10 | Emergency (ER) | payer MEDICAID ==
[~2017-10-10 13:10] MED LIST: ISOVUE-370 76%-LOCM 1 ML ONE
[2017-10-10 14:11] LABS: #Eosinphils 0.1 thou/uL (0.0-0.7); #Lymphocytes 2.1 thou/uL (1.20-3.40); #Monocytes 0.6 thou/uL (0.11-0.59); #Neutrophils 5.9 thou/uL (1.40-6.50); %Basophils 0.4 % (0.0-1.0); %Eosinophils 0.6 % (0.0-10.0); %Lymphocytes 24.3 % (21.0-51.0); %Monocytes 6.4 % (0.0-10.0); Hematocrit 39.3 % (36.0-47.0); Mean Platelet Volume 8.3 fL (7.4-10.4); Red Blood Cell (RBC) Count 4.45 mill/uL (4.20-5.40); White Blood Cell (WBC) Count 8.7 thou/uL (4.8-10.8)
[2017-10-10 14:32] LABS: ALT (SGPT) 13 U/L (8-55); AST (SGOT) 11 U/L (5-34); Alkaline Phosphatase 57 U/L (40-150); Anion Gap 12 mmol/L (10-20); BUN (Urea Nitrogen) 10 mg/dL (7.0-18.7); Bilirubin, Total 0.6 mg/dL (0.2-1.2); Calc. Creatinine Clearance 0 mL/min (70-130); Calcium 9.4 mg/dL (7.8-10.44); Carbon Dioxide 27 mmol/L (22-29); Chloride 104 mmol/L (98-107); Estimated GFR-MDRD 80; Globulin 3.2 g/dL (2.4-3.5); Protein, Total 7.3 g/dL (6.0-8.3)
[2017-10-10 14:59] LABS: Bilirubin Small (Negative); Blood, Urine Negative (Negative); Glucose, Urine (Dipstick) Negative (Negative); Ketone, Urine 80 mg/dL (Negative); Nitrite Negative (Negative); Protein, Urine (Dipstick) Trace mg/dL (Neg-Trace); Urobilinogen 0.2 mg/dL (0.2-1.0)
[2017-10-10] MEDS ORDERED: Morphine 4 MG/ML VIAL ONE (16:04)
[2017-10-10] MEDS ORDERED: Ondansetron HCl/PF 4 MG/2 ML Vial ONE (16:05)
--- NOTE | 2017-10-10 19:18 | CT ---
ABDOMEN AND PELVIC CT WITH CONTRAST 10/10/17 INDICATION; Crohn's, GI bleed. FINDINGS: There is an indwelling partially visualized catheter correlating to patient's ventriculoperitoneal sh unt catheter coiled at the pelvis. This may relate to a dialysis catheter. The bowel is not reliably assessed as enteric contrast was not administered for the exam. No acute abnormalities of the solid a bdominal organs are seen. There is evidence of prior cholecystectomy. Abdominal aorta is normal in ca liber. No free air. No acute osseous pathology. Degenerative change is present predominantly involvin g the lumbosacral junction. IMPRESSION: No acute process is seen. Limited assessment of the bowel without enteric contrast. POS: [facility]
== END 2017-10-10 18:30 | disposition home or self-care (01) ==
LOC: ERS 13:10
DX: K51.90 Ulcerative colitis, unspecified, without complications (principal); F41.9 Anxiety disorder, unspecified
CPT/HCPCS: 36415; 74177; 80053; 81003; 81025; 83735; 85025; 86140; 96374; 96375; J2270; J2405

== ENCOUNTER 2017-10-16 15:35 | Emergency (ER) | payer MEDICAID ==
[2017-10-16] MEDS ORDERED: Metoclopramide HCl 10 MG/2 ML VIAL IM SCH (18:45)
[2017-10-16] MEDS ORDERED: diphenhydrAMINE 50 MG/ML VIAL IVP SCH (18:45)
[2017-10-16] MEDS ORDERED: Dexamethasone 10 MG/ML VIAL SLOW IVP SCH (18:45)
[2017-10-16] MEDS ORDERED: Sodium Chloride 0.9% 1,000 ML IV SCH (18:45)
[2017-10-16] MEDS ORDERED: diphenhydrAMINE 50 MG/ML VIAL ONE (18:48)
[2017-10-16] MEDS ORDERED: Dexamethasone 10 MG/ML VIAL ONE (18:48)
[2017-10-16] MEDS ORDERED: Metoclopramide HCl 10 MG/2 ML VIAL ONE (18:48)
[2017-10-16 19:18] LABS: #Basophils 0.1 thou/uL (0.0-0.2); #Eosinphils 0.1 thou/uL (0.0-0.7); #Lymphocytes 3.2 thou/uL (1.20-3.40); #Monocytes 0.6 thou/uL (0.11-0.59); #Neutrophils 8.3 thou/uL (1.40-6.50); %Basophils 0.5 % (0.0-1.0); %Eosinophils 1.1 % (0.0-10.0); %Lymphocytes 26.2 % (21.0-51.0); %Monocytes 5.2 % (0.0-10.0); Mean Platelet Volume 8.5 fL (7.4-10.4); White Blood Cell (WBC) Count 12.4 thou/uL (4.8-10.8)
[2017-10-16 19:40] LABS: ALT (SGPT) 12 U/L (8-55); AST (SGOT) 12 U/L (5-34); Alkaline Phosphatase 61 U/L (40-150); Anion Gap 11 mmol/L (10-20); BUN (Urea Nitrogen) 7 mg/dL (7.0-18.7); Bilirubin, Total 0.3 mg/dL (0.2-1.2); Calc. Creatinine Clearance 0 mL/min (70-130); Calcium 10.4 mg/dL (7.8-10.44); Carbon Dioxide 26 mmol/L (22-29); Chloride 105 mmol/L (98-107); Estimated GFR-MDRD 88; Globulin 3.5 g/dL (2.4-3.5); Protein, Total 8.1 g/dL (6.0-8.3)
--- NOTE | 2017-10-17 06:38 | CON ---
DATE OF CONSULTATION: 10/16/2017 HISTORY OF PRESENT ILLNESS: Ms. Keys is a 37-year-old female who I saw in the emergency department tonight. She presents with headache. She has a history of CAUSTICS LOADER shunt for meningitis and presents with headache that started at 3: 00 this afternoon. She reports some intermittent tingling to the right side of her head around the area of the shunt. She was recently admitted for GI bleed. No fever, chills, or redness around the shunt and no nausea or vomiting. She denies any other neurologic symptoms. There is no weakness or numbness. Maximum severity of symptoms are moderate and she has had no change in patient' s symptoms since last time she was admitted. The patient has a history of being admitted or seen in the ER at [facility] several times throughout the past month. There have been several evaluations of her brain with her CT scan and shuntogram, which shows that the shunt is working. She has a history of shunt placement with a neurosurgeon in [place], [place]. She is living here in [place] as she is in a [facility] house. She is currently being treated with GI. Neurosurgery was again consulted for evaluation of her shunt. ALLERGIES: No known drug allergies. CURRENT MEDICATIONS: 1. Lialda 1.2 g oral. 2. Prednisone 10 mg oral 2 times a day. PAST MEDICAL HISTORY: Includes CAUSTICS LOADER shunt for spinal meningitis and bleeding ulcers. PAST SURGICAL HISTORY: Ventriculoperitoneal shunt, history of cholecystectomy, laparoscopic, and history of tubal ligation. PSYCHIATRIC HISTORY: The patient includes no anxiety, no psychiatric admissions. Several previous emergency department visits at [facility]. SOCIAL HISTORY: The patient is a former tobacco user. She denies any alcohol use, denies drug use and has a significant smoking history. REVIEW OF SYSTEMS: The patient's vital signs were reviewed and were stable. She denies any chills or fever. Denies any neck stiffness or tenderness to the cervical spine and has no limited range of motion of cervical spine. PHYSICAL EXAMINATION: EYES: Pupils are equal and reactive to light. Extraocular movements are intact. Sclerae nonicteric. HEENT: Normocephalic, atraumatic. Hearing intact. Moist mucous membranes. NECK: Trachea is midline. CARDIOVASCULAR: Regular rate and rhythm. Normal S1 and S2 heart sounds. No distal cyanosis or clubbing noted. RESPIRATORY: The patient has bilateral symmetric chest rise. Appears to be in no shortness of breath. GASTROINTESTINAL: Patient complains of rectal bleeding, this is ongoing for the past several months and she is currently being treated. MUSCULOSKELETAL: There are no sensory or motor deficits of upper and lower extremities bilaterally. SKIN: Negative skin review of systems. EXTREMITIES: There is no erythema or redness over the shunt placement on the right temporal region. NEUROLOGIC: Cranial nerves II through XII are grossly intact. Speech is fluent , she denies any paralysis, paresthesias ASSESSMENT: Sandra Keys is a 37-year-old female who presents to [facility] with headache. Neurosurgery was consulted to assess the right-sided ventriculoperitoneal shunt. PLAN: There are no signs of meningitis on exam. There is mild tenderness around the ventriculoperitoneal shunt. Patient currently has an appointment with her neurosurgeon in [place], [place] in which she contacted already, but she does not know the date and when she is supposed to go her appointment. There is no neurosurgical emergency at this time and the shunt looks like it is working very well. We will have her follow up with her neurosurgeon in [place] who has previous images of her brain before. She has been seen several times in [facility] as she has been seen on 2016, 10/04/2017, 10/08/2017, 10/16/2017. If there are any questions, please feel free to contact Neurosurgery. RONDA
== END 2017-10-16 21:00 | disposition home or self-care (01) ==
LOC: ERS 15:35
DX: R51 Headache (principal); F41.9 Anxiety disorder, unspecified; Z87.891 Personal history of nicotine dependence; Z79.52 Long term (current) use of systemic steroids; Z79.899 Other long term (current) drug therapy
CPT/HCPCS: 36415; 80053; 85025; 85652; 86140; 96365; 96366; 96375; J1100; J1200; J2765

== ENCOUNTER 2017-10-29 09:59 | Emergency (ER) | payer MEDICAID ==
[2017-10-29 10:49] LABS: #Basophils 0.1 thou/uL (0.0-0.2); #Eosinphils 0.2 thou/uL (0.0-0.7); #Lymphocytes 2.3 thou/uL (1.20-3.40); #Monocytes 0.5 thou/uL (0.11-0.59); #Neutrophils 7.3 thou/uL (1.40-6.50); %Basophils 0.6 % (0.0-1.0); %Eosinophils 1.8 % (0.0-10.0); Hematocrit 40.5 % (36.0-47.0); Mean Platelet Volume 8.2 fL (7.4-10.4); Red Blood Cell (RBC) Count 4.55 mill/uL (4.20-5.40); White Blood Cell (WBC) Count 10.4 thou/uL (4.8-10.8)
[2017-10-29 11:09] LABS: ALT (SGPT) 14 U/L (8-55); AST (SGOT) 13 U/L (5-34); Alkaline Phosphatase 57 U/L (40-150); Anion Gap 13 mmol/L (10-20); BUN (Urea Nitrogen) 9 mg/dL (7.0-18.7); Bilirubin, Total 0.3 mg/dL (0.2-1.2); Calc. Creatinine Clearance 0 mL/min (70-130); Calcium 9.8 mg/dL (7.8-10.44); Carbon Dioxide 23 mmol/L (22-29); Chloride 108 mmol/L (98-107); Estimated GFR-MDRD 83; Globulin 3.2 g/dL (2.4-3.5); Protein, Total 7.4 g/dL (6.0-8.3)
[2017-10-29 11:53] LABS: Bilirubin Negative (Negative); Blood, Urine Negative (Negative); Glucose, Urine (Dipstick) Negative (Negative); Ketone, Urine Negative (Negative); Nitrite Negative (Negative); Protein, Urine (Dipstick) Negative (Neg-Trace); Urobilinogen 0.2 mg/dL (0.2-1.0)
[2017-10-29] MEDS ORDERED: Dicyclomine 20 MG TAB ONE (12:33)
== END 2017-10-29 12:49 | disposition home or self-care (01) ==
LOC: ERS 09:59
DX: K51.90 Ulcerative colitis, unspecified, without complications (principal); F41.9 Anxiety disorder, unspecified; Z87.891 Personal history of nicotine dependence; Z79.899 Other long term (current) drug therapy
CPT/HCPCS: 36415; 80053; 81003; 84703; 85025; 99284

== ENCOUNTER 2017-11-04 10:33 | Emergency (ER) | payer MEDICAID, OTHER ==
[2017-11-04 11:59] LABS: #Eosinphils 0.1 thou/uL (0.0-0.7); #Lymphocytes 1.7 thou/uL (1.20-3.40); #Monocytes 0.4 thou/uL (0.11-0.59); #Neutrophils 6.5 thou/uL (1.40-6.50); %Basophils 0.2 % (0.0-1.0); %Eosinophils 0.8 % (0.0-10.0); %Lymphocytes 19.9 % (21.0-51.0); %Monocytes 4.1 % (0.0-10.0); %Neutrophils 75.1 % (42.0-75.0); Hemoglobin 13.2 g/dL (12.0-16.0); Mean Corpuscular HGB CONC 32.9 g/dL (32.0-36.0); Mean Corpuscular Hemoglobin 29.2 pg (27.0-31.0); Mean Corpuscular Volume 88.9 fl (81.0-99.0); Mean Platelet Volume 8.3 fL (7.4-10.4); Platelet Count 281 thou/uL (130-400); RBC Distribution Width 12.5 % (11.5-14.5); White Blood Cell (WBC) Count 8.7 thou/uL (4.8-10.8)
[2017-11-04 12:16] LABS: ALT (SGPT) 11 U/L (8-55); AST (SGOT) 11 U/L (5-34); Albumin 4.3 g/dL (3.5-5.0); Alkaline Phosphatase 58 U/L (40-150); Anion Gap 10 mmol/L (10-20); BUN (Urea Nitrogen) 10 mg/dL (7.0-18.7); Bilirubin, Total 0.6 mg/dL (0.2-1.2); Calc. Creatinine Clearance 0 mL/min (70-130); Calcium 9.9 mg/dL (7.8-10.44); Carbon Dioxide 26 mmol/L (22-29); Chloride 106 mmol/L (98-107); Estimated GFR-MDRD 85; Globulin 3.2 g/dL (2.4-3.5); Glucose 92 mg/dL (70-105); Potassium 4.2 mmol/L (3.5-5.1); Protein, Total 7.5 g/dL (6.0-8.3); Sodium 138 mmol/L (136-145)
--- NOTE | 2017-11-04 16:14 | CT ---
CT BRAIN NONCONTRAST: DATE: 11/04/17 TIME: 3:49 p.m. HISTORY: 37-year-old female with headache, fever, vomiting, and altered mental status. COMPARISON: 10/08/17. FINDINGS: SEAFOOD PROCESS WORKER shunt catheter enters through a right frontal bur hole, traversing the right frontal lobe parenchy ma, with distal tip at midline in the region of the foramen of Monro. The lateral ventricles are smal l and slit-like except for the temporal horns. The third ventricle is effaced. The fourth ventricle i s small. The ambient cistern is effaced. There is no acute intra-axial or extra-axial hemorrhage. No mass effect, midline shift, or extra-axia l fluid collection. Bilateral tympanomastoid cavities, and the frontal, ethmoid, and sphenoid sinuses , are grossly clear. No acute calvarial fracture. No interval change overall. IMPRESSION: 1. No acute intracranial findings. 2. Collapsed ventricles, raising the possibility of over shunting, chronic. 3. No interval change overall since 10/08/17. AKASH Keith POS: [facility]
[2017-11-04] MEDS ORDERED: Ibuprofen 800 MG TAB ONE (16:37)
[2017-11-04] MEDS ORDERED: diphenhydrAMINE 25 MG CAP ONE (16:37)
[2017-11-04 16:56] LABS: Bilirubin Negative (Negative); Blood, Urine Negative (Negative); Clarity CLOUDY (Clear); Glucose, Urine (Dipstick) Negative (Negative); Leukocyte Trace (Negative); Nitrite Negative (Negative); Protein, Urine (Dipstick) Negative (Neg-Trace); Specific Gravity, Urine 1.019 (1.002-1.036); Urobilinogen 0.2 mg/dL (0.2-1.0); pH, Urine 5.5 (5.0-9.0)
[2017-11-04 16:58] LABS: Bacteria/HPF 1+ HPF (None Seen); Hyaline Casts/LPF 0-3 HYALINE CAST LPF (0-3 Hyaline); Pathc Cast-AUWi Flag 0.27 (0-2.49)
[2017-11-04] MEDS ORDERED: Metoclopramide HCl 10 MG TAB PO SCH (18:15)
--- NOTE | 2017-11-05 00:58 | CON ---
DATE OF CONSULTATION: 11/04/2017 HISTORY OF PRESENT ILLNESS: Ms. Keys is a 37-year-old woman with known RECEIVING AND PROCESSING SUPERVISOR shunt, who presented to the emergency department today at [facility] for severe headache that is postural in nature. She feels as she has a shunt. CT scan was performed that reveals ventricles and possible gurdeep dence of chronic overshunting as this is stable to CT scan in the middle of October and at the very end of September of this past year. When I see her in the room, she is alert and oriented x3. She is sitting up without any significant distress. She does not appear to have any photophobia. Pupils a re equal, round, and reactive to light. Extraocular movements are intact. Cervical range of motion is preserved. She does not show any signs of meningismus. She has good upper and lower extremity st rength bilaterally. She has no paresthesias noted. She has some mild sensitivity over the scalp leora r her shunt reservoir, which is consistent with Dr. Maicol Berger's examination from a consultation in [facility] october, last presentation to the emergency department. She is scheduled for outpatient fo llowup with Dr. Maicol Berger in our clinic on this week. I do not feel that any of her headac he symptoms are convincingly stemming from her shunt and recommend just outpatient followup this week as already planned. She does also have a severe UTI and this may be contributing to headache sympto ms and overall to me looks actually quite well. Definitively, no surgical management. I will not ad just shunt at this time.
== END 2017-11-04 20:03 | disposition home or self-care (01) ==
LOC: ERS 10:33
DX: N39.0 Urinary tract infection, site not specified (principal); R51 Headache; F41.9 Anxiety disorder, unspecified; K50.90 Crohn's disease, unspecified, without complications; Z87.891 Personal history of nicotine dependence
CPT/HCPCS: 36415; 70450; 80053; 81003; 81015; 83605; 83690; 85025; 87040; 87086

== ENCOUNTER 2017-11-20 13:49 | Emergency (ER) | payer MEDICAID, OTHER ==
[2017-11-20 14:47] LABS: Bilirubin Small (Negative); Blood, Urine Small (Negative); Clarity CLEAR (Clear); Glucose, Urine (Dipstick) Negative (Negative); Leukocyte Negative (Negative); Nitrite Negative (Negative); Protein, Urine (Dipstick) Trace mg/dL (Neg-Trace); Specific Gravity, Urine 1.031 (1.002-1.036); Urobilinogen 0.2 mg/dL (0.2-1.0)
[2017-11-20 14:50] LABS: Pregnancy Test - Urine (BHCG) Negative (Negative); Pregu Control Background? CLEAR/WHITE (CLR/WHITE); Pregu Control Bar Appear? YES (CONTROL BAR); Specific Gravity 1.031 (1.002-1.036)
[2017-11-20 14:52] LABS: Bacteria/HPF None Seen HPF (None Seen); Hyaline Casts/LPF 7-10 HYALINE CAST LPF (0-3 Hyaline); Pathc Cast-AUWi Flag 0.54 (0-2.49); WBC/HPF 0-3 HPF (0-3)
[2017-11-20 14:54] LABS: Hemoglobin 12.8 g/dL (12.0-16.0); Mean Corpuscular HGB CONC 32.4 g/dL (32.0-36.0); Mean Corpuscular Hemoglobin 28.3 pg (27.0-31.0); Mean Corpuscular Volume 87.2 fl (81.0-99.0); Mean Platelet Volume 9.2 fL (7.4-10.4); Platelet Count 169 thou/uL (130-400); RBC Distribution Width 12.2 % (11.5-14.5); Red Blood Cell (RBC) Count 4.53 mill/uL (4.20-5.40); White Blood Cell (WBC) Count 8.6 thou/uL (4.8-10.8)
[2017-11-20 15:26] LABS: Lymphocytes 71 % (21-51); Monocytes 5 % (0-10)
[2017-11-20 15:27] LABS: PLT Morphology Comment Appears Adequate
[2017-11-20 15:29] LABS: Neutrophil 24 % (42-75)
[2017-11-20 15:30] LABS: Albumin 4.1 g/dL (3.5-5.0); Chloride 110 mmol/L (98-107); Potassium 3.4 mmol/L (3.5-5.1); Sodium 141 mmol/L (136-145)
[2017-11-20 15:55] LABS: Calcium 9.3 mg/dL (7.8-10.44); Glucose 93 mg/dL (70-105)
[2017-11-20 15:56] LABS: Protein, Total 7.1 g/dL (6.0-8.3)
[2017-11-20 15:57] LABS: Anion Gap 16 mmol/L (10-20); Bilirubin, Total 0.3 mg/dL (0.2-1.2); Carbon Dioxide 20 mmol/L (22-29)
[2017-11-20 15:58] LABS: Alkaline Phosphatase 55 U/L (40-150)
[2017-11-20 15:59] LABS: Calc. Creatinine Clearance 0 mL/min (70-130); Estimated GFR-MDRD 82
[2017-11-20 16:00] LABS: BUN (Urea Nitrogen) 9 mg/dL (7.0-18.7)
[2017-11-20 16:01] LABS: ALT (SGPT) 12 U/L (8-55); AST (SGOT) 11 U/L (5-34)
[2017-11-20] MEDS ORDERED: Water For Injection,Sterile 20 ML ONE (16:43)
[2017-11-20] MEDS ORDERED: Metoclopramide HCl 10 MG/2 ML VIAL ONE (16:43)
[2017-11-20] MEDS ORDERED: diphenhydrAMINE 50 MG/ML VIAL ONE (16:43)
[2017-11-20] MEDS ORDERED: Ketorolac Tromethamine 30 MG/ML VIAL ONE (16:43)
[2017-11-20] MEDS ORDERED: methylPREDNISolone Sod Succ/PF 125 MG/2 ML VIAL ONE (16:43)
--- NOTE | 2017-11-20 17:09 | CT ---
CT BRAIN WITHOUT CONTRAST 11/20/17 HISTORY: Headache and shunt. COMPARISON: CT brain 11/04/17. FINDINGS: Right transfrontal catheter is in place. The ventricular size is similar. Right burleson matter gliosis i s present from prior shunt catheter placement. No acute hemorrhage. No infarct. No midline shift or mass effect. The paranasal sinuses and mastoids are clear. IMPRESSION: No acute intracranial abnormality. No evidence of hydrocephalus. Findings are unchanged from 11/04/17. POS: [facility]
[2017-11-20] MEDS ORDERED: Magnesium Sulfate 2 GM/100 ML BAG ONE (18:34)
--- NOTE | 2017-11-20 19:23 | RAD ---
SHUNTOGRAM 11/20/17 HISTORY: Patient with ventriculoperitoneal shunt and the shunt has failed and complains of severe headache. COMPARISON: 10/02/17. FINDINGS: AP and lateral views of the skull, AP view of the neck, chest, and abdomen are provided. As noted on the prior exam, there is a right sided ventriculoperitoneal shunt again entering via a right frontal approach and coursing down the right lateral aspect of the neck and chest. The ventriculoperitoneal s david catheter does appear intact throughout its course with tip overlying the lower pelvis. There is a loop overlying the medial aspect of the right upper quadrant, but acuteness of the angle of the loo p is difficult to evaluate on this single frontal projection. There is otherwise no obvious kink with in the ventriculoperitoneal shunt catheter. No other interval change. IMPRESSION: Ventriculoperitoneal shunt catheter again noted in place which appears intact throughout its course. There is a loop configuration of the catheter in the medial right upper quadrant, but this is not tho ught to represent a kink. POS: [facility]
== END 2017-11-20 19:54 | disposition home or self-care (01) ==
LOC: ERS 13:49
DX: R51 Headache (principal); K58.9 Irritable bowel syndrome, unspecified; F41.9 Anxiety disorder, unspecified; Z87.891 Personal history of nicotine dependence; Z79.899 Other long term (current) drug therapy
CPT/HCPCS: 36415; 70450; 75809; 80053; 81003; 81015; 81025; 85025; 96365; 96366; 96367; 96375; J1200; J1885; J2765; J2930; J3475

== ENCOUNTER 2017-11-28 15:05 | Emergency (ER) | payer OTHER ==
[2017-11-28] MEDS ORDERED: Metoclopramide HCl 10 MG/2 ML VIAL ONE (17:24)
[2017-11-28] MEDS ORDERED: diphenhydrAMINE 50 MG/ML VIAL ONE (17:24)
[2017-11-28 18:34] LABS: Pregnancy Test - Urine (BHCG) Negative (Negative); Pregu Control Background? CLEAR/WHITE (CLR/WHITE); Pregu Control Bar Appear? YES (CONTROL BAR); Specific Gravity 1.023 (1.002-1.036)
--- NOTE | 2017-11-28 19:09 | RAD ---
HISTORY: Headache. ELEVATOR INSTALLER APPRENTICE shunt. Shuntogram. COMPARISON: 11/20/17. FINDINGS: Stable ELEVATOR INSTALLER APPRENTICE shunt catheter via a right parietal approach. The ELEVATOR INSTALLER APPRENTICE shunt catheter courses along the right neck, right hemithorax and is intact. The ELEVATOR INSTALLER APPRENTICE shunt catheter projects over the right hemiabdomen and pelvis. Distal tip is not included. The visualized catheter appears to intact. IMPRESSION: Intact visualized ELEVATOR INSTALLER APPRENTICE shunt catheter. POS: [facility]
[2017-11-28] MEDS ORDERED: Dexamethasone 10 MG/ML VIAL ONE (21:26)
[2017-11-28] MEDS ORDERED: Magnesium Sulfate 2 GM/100 ML BAG ONE (21:28)
[2017-11-28] MEDS ORDERED: SODIUM CHLORIDE 0.9% IVPB SCH (21:30)
[2017-11-28] MEDS ORDERED: Methocarbamol 500 MG TAB PO SCH (21:30)
[2017-11-28] MEDS ORDERED: VALPROATE SODIUM IVPB SCH (21:30)
--- NOTE | 2017-11-28 21:59 | CT ---
EXAM NONCONTRAST HEAD CT 11/28/17 COMPARISON: 11/20/17, 11/04/17. HISTORY: Headache. Intermittent onset. Patient has a SALES CORRESPONDENT shunt catheter. TECHNIQUE: Noncontrast head CT is performed from skull base to skull vertex. FINDINGS: No parenchymal hemorrhage. No extra-axial hematoma. No midline shift. Basilar cisterns are patent. Br ain volume is age appropriate. Cortical burleson-white matter differentiation is preserved. Stable location of the SALES CORRESPONDENT shunt catheter via the right frontal approach. The ventricular system has n ot significantly changed in size or configuration when compared to the previous exam. Adequate aeration of the sinuses and mastoid air cells. Calvarium is intact. IMPRESSION: No significant interval change. Stable configuration of the ventricular system. No evidence of signif icant hydrocephalus. Rather, the ventricles appear to be somewhat collapsed. Correlate for over shunt ing. POS: [facility]
[2017-11-28] MEDS ORDERED: Ketorolac Tromethamine 30 MG/ML VIAL ONE (23:16)
[2017-11-28] MEDS ORDERED: SUMAtriptan Succinate 6 MG/0.5 ML VIAL SC SCH (23:45)
== END 2017-11-29 00:45 | disposition home or self-care (01) ==
LOC: ERS 15:05
DX: R51 Headache (principal); Z87.891 Personal history of nicotine dependence; Z79.899 Other long term (current) drug therapy
CPT/HCPCS: 70450; 75809; 81025; 96365; 96366; 96367; 96368; 96372; 96375; J1100; J1200; J1885; J2765; J3030; J3475; J7050